=== PATIENT | female | born 1975 | race Caucasian/White ===

== ENCOUNTER → 2020-01-24 | Outpatient (CLI) | payer OTHER ==
[~2020-01-24] MED LIST: AMPH1CAP14; DIAZ5TAB; FLUO20CA22; LIDOCAINE 1% MDV 20ML VIAL As Ordered ONE; LISI10TA15; OLAN20TA14; SODIUM BICARBONATE 8.4% INJ 50MEQ 50 ML VIAL As Ordered ONE; TEMA30CA; ZOLP10TA2
[2020-01-24 11:42] VITALS: BP 132/73
--- NOTE | 2020-01-24 14:08 | REP ---
Ultrasound-guided left breast cyst aspiration The procedure was performed by CARA Santana, under the direct supervision of Dr. Bravo. The risks and benefits of the procedure were explained to the patient and informed consent was obtained both verbally and written. Directly prior to the start of the procedure, a formal timeout was completed in the procedure room. The left breast cyst was localized using ultrasound guidance. The skin was prepped and draped in a sterile fashion. 8 ml of buffered lidocaine was used as a local anesthetic. Using ultrasound guidance and 18 gauge spinal needle was inserted and advanced into the cyst. Approximately 0.5 ml of green cystic fluid was aspirated, and the cyst fully collapsed. The patient tolerated the procedure well and there were no immediate complications. After the appropriate monitored convalescence the patient was discharged from the department. Reviewed by CARA Montes De Oca 01/24/2020 01:53 P Electronically Signed by Steve Bravo MD 01/24/2020 01:59 P
== END ==
LOC: M IRPRO 09:56
PROVIDERS: ATTEND Nurse Practitioner Family
DX: N63.20 Unspecified lump in the left breast, unspecified quadrant (principal)

== ENCOUNTER → 2022-08-06 | Outpatient (CLI) | payer OTHER ==
[~2022-08-06] MED LIST changes: +**SFHN** LIDOCAINE 1% MDV 20ML VIAL ONE; +**SFHN** SODIUM BICARBONATE 8.4% 10MEQ 10ML VIAL ONE; -LIDOCAINE 1% MDV 20ML VIAL As Ordered ONE; -LISI10TA15; +LISI10TA24; -SODIUM BICARBONATE 8.4% INJ 50MEQ 50 ML VIAL As Ordered ONE; +ZYRTTAB8 PO
[2022-08-06 10:14] VITALS: BP 116/76
== END ==
LOC: M WHCPRO 08:27
PROVIDERS: ATTEND Nurse Practitioner Family
DX: D24.2 Benign neoplasm of left breast (principal)

== ENCOUNTER → 2022-08-06 | Outpatient (CLI) | payer OTHER ==
[~2022-08-06] MED LIST changes: -**SFHN** LIDOCAINE 1% MDV 20ML VIAL ONE; -**SFHN** SODIUM BICARBONATE 8.4% 10MEQ 10ML VIAL ONE
== END ==
LOC: M WHC 08:29
PROVIDERS: ATTEND Surgery
DX: N63.11 Unspecified lump in the right breast, upper outer quadrant (principal)

== ENCOUNTER → 2022-08-12 | Outpatient (CLI) | payer OTHER ==
[2022-08-12 10:17] VITALS: BP 130/84
== END ==
LOC: M WHCPRO 08:46
PROVIDERS: ATTEND Surgery
DX: C50.211 Malignant neoplasm of upper-inner quadrant of right female breast (principal)
CPT/HCPCS: 19083; 77065; 88305; 88342; G0279

== ENCOUNTER → 2022-08-18 | Outpatient (CLI) | payer OTHER ==
[2022-08-18 16:16] LABS: BLOOD UREA NITROGEN 10 MG/DL (7-18); CALCIUM LEVEL 9.2 MG/DL (8.5-10.1); CARBON DIOXIDE LEVEL 28 MEQ/L (21-32); CHLORIDE LEVEL 106 MEQ/L (98-107); CREATININE FOR GFR 0.66 MG/DL (0.55-1.30); GLOMERULAR FILTRATION RATE > 60.0 (>58); GLUCOSE, FASTING 90 MG/DL (70-100); POTASSIUM SERUM 3.6 MEQ/L (3.5-5.1); SODIUM LEVEL 138 MEQ/L (136-145)
== END ==
LOC: M PLALAB 12:15
PROVIDERS: ATTEND Surgery
DX: C50.911 Malignant neoplasm of unspecified site of right female breast (principal)

== ENCOUNTER → 2022-08-20 | Outpatient (CLI) | payer OTHER ==
[~2022-08-20] MED LIST changes: +PROHANCE 279.3MG/ML 15ML VIAL As Ordered ONE
== END ==
LOC: M RAD 15:30
PROVIDERS: ATTEND Surgery
DX: C50.911 Malignant neoplasm of unspecified site of right female breast (principal)
CPT/HCPCS: A9576; C8908

== ENCOUNTER → 2022-09-03 | Outpatient (CLI) | payer OTHER ==
[~2022-09-03] MED LIST changes: +ALPR1TAB3 PO; +POTA-150 PO; -PROHANCE 279.3MG/ML 15ML VIAL As Ordered ONE
== END ==
LOC: M LABSMTC 10:17
PROVIDERS: ATTEND Anesthesiology
DX: Z01.812 Encounter for preprocedural laboratory examination (principal); Z11.52 Encounter for screening for COVID-19

== ENCOUNTER 2022-09-08 06:27 | Day surgery (SDC) | payer OTHER ==
[~2022-09-08] VITALS: Ht 167.6 cm; Wt 54.4 kg
[~2022-09-08 06:27] MED LIST changes: +HEPARIN SOD (PORCINE) 5000UNITS/ML 1ML VIAL/SYRINGE SQ ONE; +NS 1,000 ML IV ONE; +ceFAZolin SOD 2 GM in IV 1 EA IV ONE
[2022-09-08] MEDS ORDERED: LR 1,000 ML IV SCH ×2 (07:20→14:05)
[2022-09-08] MEDS ORDERED: SCOPOLAMINE 1MG TRANSDERMAL PATCH TOP SCH (09:00)
[2022-09-08] MEDS ORDERED: BUPIVACAINE HCL 0.25% 10ML VIAL As Ordered ONE (10:04)
[2022-09-08] MEDS ORDERED: BUPIVACAINE LIPOSOME/PF 1.3% 20ML VIAL (13.3MG/ML)(EXPAREL) As Ordered ONE (10:04)
[2022-09-08] MEDS ORDERED: METOCLOPRAMIDE INJ 10MG/2ML VIAL (J2765 PER 1) As Ordered ONE (11:08)
[2022-09-08] MEDS ORDERED: fentaNYL 250 MCG/5 ML INJECTION As Ordered ONE (11:08)
[2022-09-08] MEDS ORDERED: propofoL 200 MG/20 ML VIAL As Ordered ONE (11:08)
[2022-09-08] MEDS ORDERED: ROCURONIUM BROMIDE 50 MG/5 ML VIAL As Ordered ONE (11:08)
[2022-09-08] MEDS ORDERED: dexameTHASONE 4 MG/ML 1ML VIAL (J1100 PER 1MG) As Ordered ONE (11:08)
[2022-09-08] MEDS ORDERED: SUGAMMADEX SODIUM 500 MG/5 ML VIAL (BRIDION) As Ordered ONE (11:08)
[2022-09-08] MEDS ORDERED: ONDANSETRON 4MG 2ML VIAL As Ordered ONE ×2 (11:08→14:11)
[2022-09-08] MEDS ORDERED: LIDOCAINE 2% 100MG/5ML SDV (FOR ANES.) As Ordered ONE (11:08)
[2022-09-08] MEDS ORDERED: ACETAMINOPHEN 1000MG 100ML IV BTL (OFIRMEV) (J0131 PER 10MG) As Ordered ONE (11:08)
[2022-09-08] MEDS ORDERED: MIDAZOLAM INJ 2MG/2ML VIAL (J2250 PER 1MG) As Ordered ONE (11:08)
[2022-09-08] MEDS ORDERED: ePHEDrine SULFATE 25 MG/5 ML(5MG/ML) SYRINGE As Ordered ONE (11:43)
[2022-09-08] MEDS ORDERED: fentaNYL 100 MCG/2 ML INJECTION IV PRN (14:05)
[2022-09-08] MEDS ORDERED: ONDANSETRON 4MG 2ML VIAL IV PRN (14:05)
[2022-09-08] MEDS ORDERED: MEPERIDINE INJ 25 MG/ML VIAL (J2175) IV PRN (14:05)
[2022-09-08] MEDS ORDERED: oxyCODONE 5MG TAB PO PRN (14:05)
[2022-09-08 17:05] VITALS: BP 117/58
== END 2022-09-08 17:12 | disposition home or self-care (01) ==
LOC: M SDC 06:27
PROVIDERS: ATTEND Surgery
DX: C50.011 Malignant neoplasm of nipple and areola, right female breast (principal); L70.9 Acne, unspecified; M19.90 Unspecified osteoarthritis, unspecified site; M54.50 Low back pain, unspecified; F32.A Depression, unspecified; L30.9 Dermatitis, unspecified; F41.1 Generalized anxiety disorder; R51.9 Headache, unspecified; I10 Essential (primary) hypertension; F43.10 Post-traumatic stress disorder, unspecified; K27.9 Peptic ulcer, site unspecified, unspecified as acute or chronic, without hemorrhage or perforation; J30.1 Allergic rhinitis due to pollen; Z79.899 Other long term (current) drug therapy; Z87.898 Personal history of other specified conditions
CPT/HCPCS: 19285; 19301; 36415; 38525; 78195; 81025; 86850; 86900; 86901; 88307; A4648; A9520; C9290; J0131; J0690; J1100; J1644; J2250; J2405; J2765; J3010

== ENCOUNTER → 2022-09-25 | Outpatient (REF) | payer OTHER ==
[~2022-09-25] MED LIST changes: -HEPARIN SOD (PORCINE) 5000UNITS/ML 1ML VIAL/SYRINGE SQ ONE; -NS 1,000 ML IV ONE; +TAMO20TA8 PO; -ceFAZolin SOD 2 GM in IV 1 EA IV ONE
== END ==
LOC: M PLALAB 16:12
PROVIDERS: ATTEND Advanced Practice Midwife
DX: Z12.4 Encounter for screening for malignant neoplasm of cervix (principal); R87.612 Low grade squamous intraepithelial lesion on cytologic smear of cervix (LGSIL); R87.810 Cervical high risk human papillomavirus (HPV) DNA test positive
CPT/HCPCS: 87624; G0123

== ENCOUNTER → 2022-09-30 | Outpatient (CLI) | payer OTHER | LOC: M ONCR 08:41 | PROVIDERS: ATTEND Dietitian, Registered | DX: Z71.3 Dietary counseling and surveillance (principal); C50.919 Malignant neoplasm of unspecified site of unspecified female breast; R63.6 Underweight ==

== ENCOUNTER → 2022-09-30 | Outpatient (CLI) | payer OTHER | LOC: M ONCR 08:46 | PROVIDERS: ATTEND General Practice | DX: C50.211 Malignant neoplasm of upper-inner quadrant of right female breast (principal); N64.89 Other specified disorders of breast; F41.8 Other specified anxiety disorders; Z79.810 Long term (current) use of selective estrogen receptor modulators (SERMs); Z79.899 Other long term (current) drug therapy ==

== ENCOUNTER 2022-10-12 10:10 | Outpatient (RCR) | payer OTHER | END 2022-10-21 | LOC: M ONCR 10:10 | PROVIDERS: ATTEND General Practice | DX: C50.411 Malignant neoplasm of upper-outer quadrant of right female breast (principal) ==

== ENCOUNTER → 2022-10-28 | Outpatient (REF) | payer OTHER | LOC: M SFHCWAGY 17:27 | PROVIDERS: ATTEND Obstetrics & Gynecology | DX: R87.612 Low grade squamous intraepithelial lesion on cytologic smear of cervix (LGSIL) (principal) ==

== ENCOUNTER 2022-11-20 10:52 | Outpatient (RCR) | payer OTHER | END 2022-11-21 | LOC: M ONCR 10:52 | PROVIDERS: ATTEND General Practice | DX: C50.411 Malignant neoplasm of upper-outer quadrant of right female breast (principal) ==

== ENCOUNTER 2022-11-27 10:51 | Outpatient (RCR) | payer OTHER | END 2022-12-22 | LOC: M ONCR 10:51 | PROVIDERS: ATTEND General Practice | DX: C50.411 Malignant neoplasm of upper-outer quadrant of right female breast (principal) ==

== ENCOUNTER → 2023-01-06 | Outpatient (CLI) | payer OTHER ==
[~2023-01-06] MED LIST changes: +IBUP200C25 PO
== END ==
LOC: M RAD 13:49
PROVIDERS: ATTEND Internal Medicine Medical Oncology
DX: R22.41 Localized swelling, mass and lump, right lower limb (principal); C50.919 Malignant neoplasm of unspecified site of unspecified female breast

== ENCOUNTER → 2023-01-28 | Outpatient (CLI) | payer OTHER ==
[~2023-01-28] MED LIST changes: +CYCL5TAB PO; +GABA-282 PO; +HYDR-3713 PO; +OXYC10TA3 PO
== END ==
LOC: M PAL 10:45
PROVIDERS: ATTEND Nurse Practitioner Family
DX: C50.911 Malignant neoplasm of unspecified site of right female breast (principal); M54.50 Low back pain, unspecified; L30.9 Dermatitis, unspecified; F32.A Depression, unspecified; F43.10 Post-traumatic stress disorder, unspecified; F41.0 Panic disorder [episodic paroxysmal anxiety]; M19.90 Unspecified osteoarthritis, unspecified site; Z79.891 Long term (current) use of opiate analgesic; Z79.818 Long term (current) use of other agents affecting estrogen receptors and estrogen levels; Z51.5 Encounter for palliative care

== ENCOUNTER → 2023-02-04 | Outpatient (CLI) | payer OTHER ==
[~2023-02-04] VITALS: Ht 167.6 cm; Wt 56.9 kg
[~2023-02-04] MED LIST changes: +MORP-69 PO; +OXYC-1 PO; +OXYC10TA12 PO
[2023-02-04 10:26] VITALS: BP 130/72
== END ==
LOC: M PAL 10:20
PROVIDERS: ATTEND Nurse Practitioner Adult Health
DX: C50.911 Malignant neoplasm of unspecified site of right female breast (principal); M54.16 Radiculopathy, lumbar region; M50.20 Other cervical disc displacement, unspecified cervical region; G89.3 Neoplasm related pain (acute) (chronic); Z51.5 Encounter for palliative care; M19.90 Unspecified osteoarthritis, unspecified site; F32.1 Major depressive disorder, single episode, moderate; F41.0 Panic disorder [episodic paroxysmal anxiety]; L30.9 Dermatitis, unspecified; F43.10 Post-traumatic stress disorder, unspecified; Z90.89 Acquired absence of other organs; Z79.891 Long term (current) use of opiate analgesic; Z79.899 Other long term (current) drug therapy

== ENCOUNTER → 2023-02-17 | Outpatient (CLI) | payer OTHER ==
[~2023-02-17] MED LIST changes: +MIRT1TAB16 PO
== END ==
LOC: M RAD 10:03
PROVIDERS: ATTEND Internal Medicine Medical Oncology
DX: C50.911 Malignant neoplasm of unspecified site of right female breast (principal); M54.50 Low back pain, unspecified
CPT/HCPCS: 78306; A9503

== ENCOUNTER → 2023-02-18 | Outpatient (CLI) | payer OTHER ==
[~2023-02-18] VITALS: Ht 167.6 cm; Wt 57.6 kg
[2023-02-18 10:35] VITALS: BP 136/82
== END ==
LOC: M PAL 10:29
PROVIDERS: ATTEND Nurse Practitioner Adult Health
DX: C50.911 Malignant neoplasm of unspecified site of right female breast (principal); F43.10 Post-traumatic stress disorder, unspecified; G47.00 Insomnia, unspecified; M54.16 Radiculopathy, lumbar region; Z92.3 Personal history of irradiation

== ENCOUNTER → 2023-03-30 | Outpatient (CLI) | payer OTHER ==
[~2023-03-30] VITALS: Ht 167.6 cm; Wt 56.2 kg
[~2023-03-30] MED LIST changes: +NALO4SPR
[2023-03-30 14:42] VITALS: BP 110/70
== END ==
LOC: M PAL 14:35
PROVIDERS: ATTEND Nurse Practitioner Adult Health
DX: M54.16 Radiculopathy, lumbar region (principal); C50.911 Malignant neoplasm of unspecified site of right female breast; Z98.890 Other specified postprocedural states; Z92.3 Personal history of irradiation; Z51.5 Encounter for palliative care; F32.A Depression, unspecified; F41.9 Anxiety disorder, unspecified; F43.10 Post-traumatic stress disorder, unspecified; G47.00 Insomnia, unspecified; Z79.810 Long term (current) use of selective estrogen receptor modulators (SERMs); Z79.891 Long term (current) use of opiate analgesic; Z79.899 Other long term (current) drug therapy; Z80.3 Family history of malignant neoplasm of breast

== ENCOUNTER → 2023-04-29 | Outpatient (CLI) | payer OTHER ==
[~2023-04-29] VITALS: Ht 167.6 cm; Wt 54.7 kg
[2023-04-29 14:00] VITALS: BP 118/80; TEMP 98; O2SAT 98
== END ==
LOC: M PAL 13:52
PROVIDERS: ATTEND Nurse Practitioner Adult Health
DX: M54.16 Radiculopathy, lumbar region (principal); C50.919 Malignant neoplasm of unspecified site of unspecified female breast; Z51.5 Encounter for palliative care; Z98.890 Other specified postprocedural states; Z92.3 Personal history of irradiation; Z79.810 Long term (current) use of selective estrogen receptor modulators (SERMs); R53.83 Other fatigue; R23.2 Flushing; G47.00 Insomnia, unspecified; F43.10 Post-traumatic stress disorder, unspecified; F41.9 Anxiety disorder, unspecified; Z79.899 Other long term (current) drug therapy; Z79.891 Long term (current) use of opiate analgesic

== ENCOUNTER → 2023-05-27 | Outpatient (CLI) | payer OTHER | LOC: M ONCR 09:14 | PROVIDERS: ATTEND General Practice | DX: C50.211 Malignant neoplasm of upper-inner quadrant of right female breast (principal); Z71.2 Person consulting for explanation of examination or test findings; Z79.810 Long term (current) use of selective estrogen receptor modulators (SERMs); Z79.899 Other long term (current) drug therapy; Z92.3 Personal history of irradiation; Z98.890 Other specified postprocedural states ==

== ENCOUNTER → 2023-07-15 | Outpatient (CLI) | payer OTHER ==
[~2023-07-15] MED LIST changes: +GABA-282
== END ==
LOC: M PAL 12:46
PROVIDERS: ATTEND Nurse Practitioner Adult Health
DX: C50.919 Malignant neoplasm of unspecified site of unspecified female breast (principal); M54.16 Radiculopathy, lumbar region; F41.9 Anxiety disorder, unspecified; F43.10 Post-traumatic stress disorder, unspecified; Z51.5 Encounter for palliative care; G47.00 Insomnia, unspecified; M25.551 Pain in right hip; R53.83 Other fatigue; Z92.3 Personal history of irradiation; Z79.810 Long term (current) use of selective estrogen receptor modulators (SERMs); Z79.899 Other long term (current) drug therapy; Z79.891 Long term (current) use of opiate analgesic; Z79.811 Long term (current) use of aromatase inhibitors

== ENCOUNTER → 2023-07-19 | Outpatient (CLI) | payer OTHER | LOC: M WHC 13:30 | PROVIDERS: ATTEND Nurse Practitioner Women's Health | DX: C50.911 Malignant neoplasm of unspecified site of right female breast (principal) | CPT/HCPCS: 77066; G0279 ==

== ENCOUNTER → 2023-09-16 | Outpatient (CLI) | payer OTHER ==
[~2023-09-16] VITALS: Ht 170.2 cm; Wt 56.3 kg
[~2023-09-16] MED LIST changes: +CLON-412 PO; +ONDA4TAB6 PO
[2023-09-16 13:01] VITALS: BP 116/81; O2SAT 95
== END ==
LOC: M PAL 12:50
PROVIDERS: ATTEND Nurse Practitioner Adult Health
DX: C50.919 Malignant neoplasm of unspecified site of unspecified female breast (principal); M54.16 Radiculopathy, lumbar region; F43.10 Post-traumatic stress disorder, unspecified; G47.00 Insomnia, unspecified; M25.552 Pain in left hip; M79.652 Pain in left thigh; R11.0 Nausea; R23.2 Flushing; R53.83 Other fatigue; R61 Generalized hyperhidrosis; Z51.5 Encounter for palliative care; F41.9 Anxiety disorder, unspecified; Z79.810 Long term (current) use of selective estrogen receptor modulators (SERMs); Z79.891 Long term (current) use of opiate analgesic; Z79.899 Other long term (current) drug therapy; Z92.3 Personal history of irradiation; Z98.890 Other specified postprocedural states

== ENCOUNTER → 2023-09-27 | Outpatient (CLI) | payer OTHER | LOC: M PAIN 13:00 | PROVIDERS: ATTEND Nurse Practitioner Family | DX: M51.16 Intervertebral disc disorders with radiculopathy, lumbar region (principal); M25.551 Pain in right hip; L70.9 Acne, unspecified; M19.90 Unspecified osteoarthritis, unspecified site; F32.A Depression, unspecified; L30.9 Dermatitis, unspecified; F41.1 Generalized anxiety disorder; I10 Essential (primary) hypertension; F41.0 Panic disorder [episodic paroxysmal anxiety]; F43.10 Post-traumatic stress disorder, unspecified; Z79.891 Long term (current) use of opiate analgesic; Z79.899 Other long term (current) drug therapy; Z85.3 Personal history of malignant neoplasm of breast; Z92.3 Personal history of irradiation; J30.2 Other seasonal allergic rhinitis ==

== ENCOUNTER → 2023-10-12 | Outpatient (CLI) | payer OTHER ==
[~2023-10-12] VITALS: Ht 167.6 cm; Wt 55.2 kg
[2023-10-12 14:35] VITALS: BP 110/76; O2SAT 96
== END ==
LOC: M PAL 14:23
PROVIDERS: ATTEND Nurse Practitioner Adult Health
DX: C50.911 Malignant neoplasm of unspecified site of right female breast (principal); M54.16 Radiculopathy, lumbar region; F43.10 Post-traumatic stress disorder, unspecified; G47.00 Insomnia, unspecified; M25.552 Pain in left hip; R11.0 Nausea; R23.2 Flushing; R53.83 Other fatigue; R61 Generalized hyperhidrosis; Z51.5 Encounter for palliative care; F41.9 Anxiety disorder, unspecified; Z79.810 Long term (current) use of selective estrogen receptor modulators (SERMs); Z79.891 Long term (current) use of opiate analgesic; Z79.899 Other long term (current) drug therapy; Z92.3 Personal history of irradiation; Z98.890 Other specified postprocedural states

== ENCOUNTER → 2023-11-03 | Outpatient (CLI) | payer OTHER | LOC: M PLAIMG 12:47 | PROVIDERS: ATTEND Nurse Practitioner Family | DX: M25.551 Pain in right hip (principal); M51.26 Other intervertebral disc displacement, lumbar region; N83.201 Unspecified ovarian cyst, right side ==

== ENCOUNTER → 2023-11-18 | Outpatient (CLI) | payer OTHER ==
[~2023-11-18] MED LIST changes: +CLON-442 PO
== END ==
LOC: M WHC 13:01
PROVIDERS: ATTEND Specialist
DX: C50.919 Malignant neoplasm of unspecified site of unspecified female breast (principal); Z79.810 Long term (current) use of selective estrogen receptor modulators (SERMs); Z79.818 Long term (current) use of other agents affecting estrogen receptors and estrogen levels; M51.16 Intervertebral disc disorders with radiculopathy, lumbar region; M25.551 Pain in right hip; G89.29 Other chronic pain; Z79.891 Long term (current) use of opiate analgesic; Z79.899 Other long term (current) drug therapy
CPT/HCPCS: 77080; G0463

== ENCOUNTER → 2023-11-18 | Outpatient (CLI) | payer OTHER | LOC: M PAIN 16:00 | PROVIDERS: ATTEND Nurse Practitioner Family | DX: M51.16 Intervertebral disc disorders with radiculopathy, lumbar region (principal); M25.551 Pain in right hip; G89.29 Other chronic pain; Z79.891 Long term (current) use of opiate analgesic; Z79.899 Other long term (current) drug therapy ==

== ENCOUNTER → 2023-11-23 | Outpatient (CLI) | payer OTHER ==
[~2023-11-23] VITALS: Ht 167.6 cm; Wt 55.3 kg
[2023-11-23 13:41] VITALS: BP 135/80; O2SAT 96
== END ==
LOC: M PAL 13:31
PROVIDERS: ATTEND Nurse Practitioner Adult Health
DX: C50.911 Malignant neoplasm of unspecified site of right female breast (principal); N83.201 Unspecified ovarian cyst, right side; M54.16 Radiculopathy, lumbar region; F43.10 Post-traumatic stress disorder, unspecified; G47.00 Insomnia, unspecified; M25.552 Pain in left hip; R11.0 Nausea; R23.2 Flushing; R53.83 Other fatigue; Z51.5 Encounter for palliative care; Z79.810 Long term (current) use of selective estrogen receptor modulators (SERMs); Z79.891 Long term (current) use of opiate analgesic; Z79.899 Other long term (current) drug therapy; Z92.3 Personal history of irradiation; Z98.890 Other specified postprocedural states

== ENCOUNTER → 2023-11-30 | Outpatient (CLI) | payer OTHER | LOC: M ONCR 09:24 | PROVIDERS: ATTEND General Practice | DX: Z08 Encounter for follow-up examination after completed treatment for malignant neoplasm (principal); Z85.3 Personal history of malignant neoplasm of breast; R19.09 Other intra-abdominal and pelvic swelling, mass and lump; M79.604 Pain in right leg; Z92.3 Personal history of irradiation; Z79.810 Long term (current) use of selective estrogen receptor modulators (SERMs); Z79.891 Long term (current) use of opiate analgesic; Z79.899 Other long term (current) drug therapy; Z71.2 Person consulting for explanation of examination or test findings ==

== ENCOUNTER → 2023-12-22 | Outpatient (CLI) | payer OTHER | LOC: M WHC 08:46 | PROVIDERS: ATTEND Nurse Practitioner Family | DX: N83.291 Other ovarian cyst, right side (principal); Z12.4 Encounter for screening for malignant neoplasm of cervix; C50.911 Malignant neoplasm of unspecified site of right female breast | CPT/HCPCS: 36415; 76830; 76856; 86304; 86305; G0123 ==

== ENCOUNTER → 2023-12-22 | Outpatient (CLI) | payer OTHER | LOC: M PLALAB 11:20 | PROVIDERS: ATTEND Nurse Practitioner Family | DX: N83.201 Unspecified ovarian cyst, right side (principal); Z12.4 Encounter for screening for malignant neoplasm of cervix; Z11.51 Encounter for screening for human papillomavirus (HPV) ==

== ENCOUNTER → 2023-12-23 | Outpatient (CLI) | payer OTHER ==
[~2023-12-23] VITALS: Ht 167.6 cm; Wt 55.9 kg
[2023-12-23 14:09] VITALS: BP 122/78; O2SAT 97
== END ==
LOC: M PAL 13:37
PROVIDERS: ATTEND Nurse Practitioner Adult Health
DX: C50.911 Malignant neoplasm of unspecified site of right female breast (principal); N83.201 Unspecified ovarian cyst, right side; M54.16 Radiculopathy, lumbar region; F43.10 Post-traumatic stress disorder, unspecified; G47.00 Insomnia, unspecified; M25.552 Pain in left hip; R11.0 Nausea; R23.2 Flushing; R53.83 Other fatigue; Z51.5 Encounter for palliative care; Z79.810 Long term (current) use of selective estrogen receptor modulators (SERMs); Z79.891 Long term (current) use of opiate analgesic; Z79.899 Other long term (current) drug therapy; Z92.3 Personal history of irradiation; Z98.890 Other specified postprocedural states

== ENCOUNTER → 2024-01-27 | Outpatient (CLI) | payer OTHER | LOC: M WHC 09:56 | PROVIDERS: ATTEND Nurse Practitioner Family | DX: R59.9 Enlarged lymph nodes, unspecified (principal) ==

== ENCOUNTER → 2024-01-27 | Outpatient (CLI) | payer OTHER | LOC: M PLAIMG 09:57 | PROVIDERS: ATTEND Nurse Practitioner Women's Health | DX: C50.911 Malignant neoplasm of unspecified site of right female breast (principal); R92.343 Mammographic extreme density, bilateral breasts ==

== ENCOUNTER → 2024-02-01 | Outpatient (CLI) | payer OTHER ==
[~2024-02-01] VITALS: Ht 167.6 cm; Wt 56.9 kg
[2024-02-01 13:50] VITALS: BP 100/73; O2SAT 95
== END ==
LOC: M PAL 13:39
PROVIDERS: ATTEND Nurse Practitioner Adult Health
DX: C50.911 Malignant neoplasm of unspecified site of right female breast (principal); N83.201 Unspecified ovarian cyst, right side; M54.16 Radiculopathy, lumbar region; F43.10 Post-traumatic stress disorder, unspecified; G47.00 Insomnia, unspecified; M25.551 Pain in right hip; R11.0 Nausea; R23.2 Flushing; R53.83 Other fatigue; Z51.5 Encounter for palliative care; Z79.810 Long term (current) use of selective estrogen receptor modulators (SERMs); Z79.891 Long term (current) use of opiate analgesic; Z79.899 Other long term (current) drug therapy; Z92.3 Personal history of irradiation; Z98.890 Other specified postprocedural states

== ENCOUNTER → 2024-02-09 | Outpatient (CLI) | payer OTHER | LOC: M WHC 11:35 | PROVIDERS: ATTEND Nurse Practitioner Women's Health | DX: R92.8 Other abnormal and inconclusive findings on diagnostic imaging of breast (principal) ==

== ENCOUNTER → 2024-02-15 | Outpatient (CLI) | payer OTHER | LOC: M PLAIMG 13:08 | PROVIDERS: ATTEND Otolaryngology | DX: R22.1 Localized swelling, mass and lump, neck (principal) ==

== ENCOUNTER → 2024-02-21 | Outpatient (CLI) | payer OTHER | LOC: M WHC 10:41 | PROVIDERS: ATTEND Nurse Practitioner Family | DX: N83.02 Follicular cyst of left ovary (principal); N83.01 Follicular cyst of right ovary; R93.89 Abnormal findings on diagnostic imaging of other specified body structures ==

== ENCOUNTER → 2024-03-16 | Outpatient (CLI) | payer OTHER ==
[~2024-03-16] VITALS: Ht 167.6 cm; Wt 53.9 kg
[2024-03-16 13:11] VITALS: BP 110/71; O2SAT 98
== END ==
LOC: M PAL 12:52
PROVIDERS: ATTEND Nurse Practitioner Adult Health
DX: C50.911 Malignant neoplasm of unspecified site of right female breast (principal); N83.201 Unspecified ovarian cyst, right side; M54.16 Radiculopathy, lumbar region; F43.10 Post-traumatic stress disorder, unspecified; F32.A Depression, unspecified; G47.00 Insomnia, unspecified; M25.551 Pain in right hip; R11.0 Nausea; R23.2 Flushing; R53.83 Other fatigue; R59.9 Enlarged lymph nodes, unspecified; Z51.5 Encounter for palliative care; Z79.810 Long term (current) use of selective estrogen receptor modulators (SERMs); Z79.891 Long term (current) use of opiate analgesic; Z79.899 Other long term (current) drug therapy; Z92.3 Personal history of irradiation; Z98.890 Other specified postprocedural states

== ENCOUNTER → 2024-07-25 | Outpatient (CLI) | payer OTHER ==
[~2024-07-25] VITALS: Ht 167.6 cm; Wt 55.7 kg
[~2024-07-25] MED LIST changes: +BUPR2SUB SL; +FLUO-365; -FLUO20CA22; +GABA-1490 PO; +GRAL600T PO; -NALO4SPR; +NALO4SPR3; -OLAN20TA14; +OLAN20TA53; +ONDA-282 PO; -ONDA4TAB6 PO
[2024-07-25 08:52] VITALS: BP 149/96; O2SAT 97
== END ==
LOC: M PAL 08:40
PROVIDERS: ATTEND Nurse Practitioner Adult Health
DX: C50.911 Malignant neoplasm of unspecified site of right female breast (principal); N83.201 Unspecified ovarian cyst, right side; M54.16 Radiculopathy, lumbar region; F43.10 Post-traumatic stress disorder, unspecified; R59.0 Localized enlarged lymph nodes; R63.0 Anorexia; M25.551 Pain in right hip; R59.9 Enlarged lymph nodes, unspecified; Z51.5 Encounter for palliative care; Z79.891 Long term (current) use of opiate analgesic; Z79.899 Other long term (current) drug therapy; Z92.29 Personal history of other drug therapy; Z92.3 Personal history of irradiation; Z98.890 Other specified postprocedural states

== ENCOUNTER → 2024-09-21 | Outpatient (CLI) | payer OTHER ==
[~2024-09-21] MED LIST changes: -CYCL5TAB PO; +CYCL5TAB4 PO; +GABA-1172; +GABA-1172 PO; -GABA-282; -GABA-282 PO; +NALO4SPR20; -NALO4SPR3
== END ==
LOC: M PAL 07:55
PROVIDERS: ATTEND Nurse Practitioner Adult Health
DX: G89.29 Other chronic pain (principal); C50.911 Malignant neoplasm of unspecified site of right female breast; M54.16 Radiculopathy, lumbar region; F43.10 Post-traumatic stress disorder, unspecified; R63.0 Anorexia; R59.0 Localized enlarged lymph nodes; M25.551 Pain in right hip; Z51.5 Encounter for palliative care; Z79.810 Long term (current) use of selective estrogen receptor modulators (SERMs); Z79.891 Long term (current) use of opiate analgesic; Z79.899 Other long term (current) drug therapy; Z92.29 Personal history of other drug therapy; Z92.3 Personal history of irradiation; Z98.890 Other specified postprocedural states

== ENCOUNTER → 2024-10-04 | Outpatient (CLI) | payer OTHER | LOC: M PLAIMG 09:53 | PROVIDERS: ATTEND Orthopaedic Surgery | DX: M51.26 Other intervertebral disc displacement, lumbar region (principal); M51.27 Other intervertebral disc displacement, lumbosacral region ==

== ENCOUNTER → 2024-11-01 | Outpatient (CLI) | payer OTHER ==
[~2024-11-01] VITALS: Ht 167.6 cm; Wt 62.1 kg
[2024-11-01 10:30] VITALS: BP 121/83; O2SAT 97
== END ==
LOC: M PAL 10:03
PROVIDERS: ATTEND Nurse Practitioner Adult Health
DX: Z51.5 Encounter for palliative care (principal); C50.911 Malignant neoplasm of unspecified site of right female breast; M54.16 Radiculopathy, lumbar region; M25.551 Pain in right hip; R23.2 Flushing; R11.0 Nausea; F43.10 Post-traumatic stress disorder, unspecified; R63.0 Anorexia; Z79.810 Long term (current) use of selective estrogen receptor modulators (SERMs); Z79.891 Long term (current) use of opiate analgesic; Z79.899 Other long term (current) drug therapy; Z92.3 Personal history of irradiation; Z98.890 Other specified postprocedural states

== ENCOUNTER → 2024-12-06 | Outpatient (CLI) | payer OTHER ==
[~2024-12-06] VITALS: Ht 167.6 cm; Wt 61.1 kg
[2024-12-06 15:36] VITALS: BP 120/75; O2SAT 97
== END ==
LOC: M PAL 15:23
PROVIDERS: ATTEND Family Medicine
DX: Z51.5 Encounter for palliative care (principal); G89.29 Other chronic pain; C50.911 Malignant neoplasm of unspecified site of right female breast; R11.0 Nausea; Z87.828 Personal history of other (healed) physical injury and trauma; Z98.890 Other specified postprocedural states; Z79.810 Long term (current) use of selective estrogen receptor modulators (SERMs); Z79.891 Long term (current) use of opiate analgesic; Z79.899 Other long term (current) drug therapy; Z92.3 Personal history of irradiation

== ENCOUNTER → 2025-01-02 | Outpatient (REF) | payer OTHER ==
[2025-01-04 13:22] LABS: HPV APTIMA Detected (Not Detected)
== END ==
LOC: M SFHCWAGY 17:40
PROVIDERS: ATTEND Nurse Practitioner Family
DX: Z12.4 Encounter for screening for malignant neoplasm of cervix (principal); R87.610 Atypical squamous cells of undetermined significance on cytologic smear of cervix (ASC-US)
CPT/HCPCS: 87624; G0123

== ENCOUNTER → 2025-01-17 | Outpatient (CLI) | payer OTHER ==
[~2025-01-17] VITALS: Ht 167.6 cm; Wt 59.5 kg
[~2025-01-17] MED LIST changes: +CLON0.2T PO; +DULO30CA9 PO
[2025-01-17 13:13] VITALS: BP 124/69; O2SAT 94
== END ==
LOC: M PAL 12:54
PROVIDERS: ATTEND Family Medicine
DX: Z51.5 Encounter for palliative care (principal); C50.912 Malignant neoplasm of unspecified site of left female breast; R23.2 Flushing; Z79.810 Long term (current) use of selective estrogen receptor modulators (SERMs); G89.29 Other chronic pain; Z79.891 Long term (current) use of opiate analgesic; Z92.3 Personal history of irradiation; F41.1 Generalized anxiety disorder

== ENCOUNTER → 2025-02-02 | Outpatient (REF) | payer OTHER ==
[~2025-02-02] MED LIST changes: +GABA-1171 PO
== END ==
LOC: M PLALAB 15:37
PROVIDERS: ATTEND Obstetrics & Gynecology
DX: Z12.4 Encounter for screening for malignant neoplasm of cervix (principal); R87.612 Low grade squamous intraepithelial lesion on cytologic smear of cervix (LGSIL)

== ENCOUNTER → 2025-02-14 | Outpatient (CLI) | payer OTHER ==
[~2025-02-14] VITALS: Ht 167.6 cm; Wt 58.6 kg
[2025-02-14 10:48] VITALS: BP 137/92; O2SAT 96
== END ==
LOC: M PAL 10:16
PROVIDERS: ATTEND Physician Assistant
DX: Z51.5 Encounter for palliative care (principal); C50.811 Malignant neoplasm of overlapping sites of right female breast; Z98.890 Other specified postprocedural states; C77.3 Secondary and unspecified malignant neoplasm of axilla and upper limb lymph nodes; Z79.810 Long term (current) use of selective estrogen receptor modulators (SERMs); Z79.891 Long term (current) use of opiate analgesic; G89.21 Chronic pain due to trauma; Z92.3 Personal history of irradiation; R23.2 Flushing

== ENCOUNTER → 2025-03-13 | Outpatient (CLI) | payer OTHER ==
[~2025-03-13] VITALS: Ht 167.6 cm; Wt 56.9 kg
[~2025-03-13] MED LIST changes: +BUPR8SUB SL; +DULO1CAP4 PO; +GABA-1635 PO
[2025-03-13 10:25] VITALS: BP 141/85; O2SAT 100
== END ==
LOC: M PAL 09:56
PROVIDERS: ATTEND Physician Assistant
DX: Z51.5 Encounter for palliative care (principal); C50.911 Malignant neoplasm of unspecified site of right female breast; G89.21 Chronic pain due to trauma; R11.0 Nausea; R23.2 Flushing; Z92.3 Personal history of irradiation; Z79.810 Long term (current) use of selective estrogen receptor modulators (SERMs); Z79.891 Long term (current) use of opiate analgesic; Z79.899 Other long term (current) drug therapy; Z98.890 Other specified postprocedural states

== ENCOUNTER → 2025-03-19 | Outpatient (CLI) | payer OTHER ==
[~2025-03-19] VITALS: Ht 167.6 cm; Wt 57.4 kg
[2025-03-19 10:44] VITALS: BP 150/87; O2SAT 96
== END ==
LOC: M PAL 10:18
PROVIDERS: ATTEND Physician Assistant
DX: Z51.5 Encounter for palliative care (principal); C50.411 Malignant neoplasm of upper-outer quadrant of right female breast; Z98.890 Other specified postprocedural states; Z92.3 Personal history of irradiation; Z91.85 Personal history of military service; G89.21 Chronic pain due to trauma; Z79.891 Long term (current) use of opiate analgesic; Z79.899 Other long term (current) drug therapy

== ENCOUNTER → 2025-03-26 | Outpatient (CLI) | payer OTHER | LOC: M SOG 08:37 | PROVIDERS: ATTEND Physician Assistant | DX: M25.552 Pain in left hip (principal) ==

== ENCOUNTER → 2025-04-02 | Outpatient (CLI) | payer OTHER | LOC: M PLARAD 14:05 | PROVIDERS: ATTEND Nurse Practitioner Family | DX: C50.812 Malignant neoplasm of overlapping sites of left female breast (principal) | CPT/HCPCS: 78815; A9552 ==

== ENCOUNTER → 2025-04-02 | Outpatient (CLI) | payer OTHER ==
[~2025-04-02] VITALS: Ht 167.6 cm; Wt 56.1 kg
[2025-04-02 10:41] VITALS: BP 156/109; O2SAT 99
== END ==
LOC: M PAL 10:27
PROVIDERS: ATTEND Physician Assistant
DX: Z51.5 Encounter for palliative care (principal); C50.411 Malignant neoplasm of upper-outer quadrant of right female breast; M25.551 Pain in right hip; M54.59 Other low back pain; Z79.891 Long term (current) use of opiate analgesic; Z90.11 Acquired absence of right breast and nipple; C77.3 Secondary and unspecified malignant neoplasm of axilla and upper limb lymph nodes; Z92.21 Personal history of antineoplastic chemotherapy; Z92.3 Personal history of irradiation; Z79.810 Long term (current) use of selective estrogen receptor modulators (SERMs); Z91.85 Personal history of military service; Z79.899 Other long term (current) drug therapy

== ENCOUNTER → 2025-04-09 | Outpatient (CLI) | payer OTHER ==
[~2025-04-09] VITALS: Ht 167.6 cm; Wt 55.5 kg
[~2025-04-09] MED LIST changes: +MACR100C43 PO; +MELO7.5T35 PO
[2025-04-09 09:20] VITALS: BP 155/86; O2SAT 97
== END ==
LOC: M PAL 08:54
PROVIDERS: ATTEND Physician Assistant
DX: Z51.5 Encounter for palliative care (principal); Z85.3 Personal history of malignant neoplasm of breast; Z90.11 Acquired absence of right breast and nipple; Z92.3 Personal history of irradiation; G89.21 Chronic pain due to trauma; Z91.85 Personal history of military service; Z79.810 Long term (current) use of selective estrogen receptor modulators (SERMs); Z87.891 Personal history of nicotine dependence

== ENCOUNTER 2025-06-13 08:29 | Day surgery (SDC) | payer OTHER ==
[~2025-06-13] VITALS: Ht 167.6 cm; Wt 52.6 kg
[~2025-06-13 08:29] MED LIST changes: +BUPR1SUB5 SL; +TURM500C PO
[2025-06-13 10:14] VITALS: TEMP 97
[2025-06-13 11:05] VITALS: BP 158/86; O2SAT 100
== END 2025-06-13 11:10 | disposition home or self-care (01) ==
LOC: M OPP 08:29
PROVIDERS: ATTEND Surgery
DX: Z12.11 Encounter for screening for malignant neoplasm of colon (principal); D12.6 Benign neoplasm of colon, unspecified; Z79.899 Other long term (current) drug therapy
CPT/HCPCS: 45380; 88305; J2765

== ENCOUNTER → 2025-06-18 | Outpatient (CLI) | payer OTHER ==
[~2025-06-18] VITALS: Ht 167.6 cm; Wt 53.7 kg
[~2025-06-18] MED LIST changes: +BUPR1SUB4 SL; +SUBO2MIS SL; +SUBO4MIS SL
[2025-06-18 10:54] VITALS: BP 142/60; O2SAT 100
== END ==
LOC: M PAL 10:37
PROVIDERS: ATTEND Physician Assistant
DX: Z51.5 Encounter for palliative care (principal); C50.911 Malignant neoplasm of unspecified site of right female breast; Z98.890 Other specified postprocedural states; C77.3 Secondary and unspecified malignant neoplasm of axilla and upper limb lymph nodes; Z92.3 Personal history of irradiation; Z79.810 Long term (current) use of selective estrogen receptor modulators (SERMs); Z91.85 Personal history of military service; G89.21 Chronic pain due to trauma; Z79.891 Long term (current) use of opiate analgesic

== ENCOUNTER → 2025-07-17 | Outpatient (CLI) | payer OTHER ==
[~2025-07-17] MED LIST changes: +CLON0.2T
== END ==
LOC: M PAL 14:00
PROVIDERS: ATTEND Physician Assistant
DX: Z51.5 Encounter for palliative care (principal); Z85.3 Personal history of malignant neoplasm of breast; Z91.85 Personal history of military service; G89.21 Chronic pain due to trauma; Z79.891 Long term (current) use of opiate analgesic; Z79.899 Other long term (current) drug therapy

== ENCOUNTER → 2025-09-24 | Outpatient (CLI) | payer OTHER ==
[~2025-09-24] MED LIST changes: +ZOLP10TA11; -ZOLP10TA2
== END ==
LOC: M WHC 14:00
PROVIDERS: ATTEND Surgery
DX: Z85.3 Personal history of malignant neoplasm of breast (principal)
CPT/HCPCS: 77066; G0279

== ENCOUNTER → 2025-09-25 | Outpatient (CLI) | payer OTHER | LOC: M PAL 11:33 | PROVIDERS: ATTEND Physician Assistant | DX: Z51.5 Encounter for palliative care (principal); Z85.3 Personal history of malignant neoplasm of breast; Z91.85 Personal history of military service; G89.21 Chronic pain due to trauma; Z79.891 Long term (current) use of opiate analgesic; Z79.899 Other long term (current) drug therapy ==

== ENCOUNTER → 2025-10-11 | Outpatient (CLI) | payer OTHER | LOC: M PAL 10:36 | PROVIDERS: ATTEND Physician Assistant | DX: Z51.5 Encounter for palliative care (principal); Z85.3 Personal history of malignant neoplasm of breast; Z91.85 Personal history of military service; G89.21 Chronic pain due to trauma; Z79.891 Long term (current) use of opiate analgesic ==

== ENCOUNTER → 2025-11-06 | Outpatient (CLI) | payer OTHER ==
[~2025-11-06] MED LIST changes: +HYDR-3363 PO; +HYDR-643 PO; +OXYC-517 PO
== END ==
LOC: M PAL 13:21
PROVIDERS: ATTEND Physician Assistant
DX: Z51.5 Encounter for palliative care (principal); Z85.3 Personal history of malignant neoplasm of breast; Z91.85 Personal history of military service; Z79.891 Long term (current) use of opiate analgesic; G89.21 Chronic pain due to trauma; Z79.899 Other long term (current) drug therapy